=== PATIENT | male | born 1940 | race Caucasian/White ===

== ENCOUNTER 2024-12-16 10:00 | Outpatient (CLI) | payer BC, MEDICARE ==
[~2024-12-16 10:00] MED LIST: ALPR-624 PO; ASPI-611 PO; CARI350T PO; LOP25T PO; MULT-1179 PO; TRAM50TA2 PO; UBID100C16 PO; VITC500T PO
--- NOTE | 2024-12-16 12:05 | VASCULAR REPORT ---
Left lower extremity venous duplex Clinical History: Swelling Comparison: None Technique: Duplex Doppler evaluation of the deep venous system of the left lower extremity from the common femor al vein to the popliteal vein including color Doppler and spectral/pulsed waveform analysis was perfo rmed. Findings/ IMPRESSION: No acute thrombus noted within the left lower extremity. 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 There is possible arteriovenous fistula visualized within the left proximal femoral vein. Waveforms appear arterialized throughout the femoral vein with reflux noted in the mid to distal portion. This may be related to history of prior trauma. Clinical correlation advised.
== END 2024-12-16 23:59 | disposition home or self-care (01) ==
LOC: VAS 10:00
PROVIDERS: ATTEND Family Medicine
DX: I82.512 Chronic embolism and thrombosis of left femoral vein (principal); R60.0 Localized edema
CPT/HCPCS: 93971

== ENCOUNTER 2025-03-26 06:10 | Day surgery (SDC) | payer MEDICARE, MEDICAID ==
[2025-03-26] VITALS (15 sets, daily range): BP systolic 84–107; BP diastolic 46–61; PULSE 78–102; RESP 14–16; TEMP 98.5; O2SAT 94–99
[~2025-03-26] VITALS: Ht 182.9 cm; Wt 101.0 kg
[~2025-03-26 06:10] MED LIST changes: -ALPR-624 PO; +APIX2.5T PO; -ASPI-611 PO; -CARI350T PO; +LISI10TA27 PO; -LOP25T PO; +METO25TA6 PO; -MULT-1179 PO; +ROSU10TA98 PO; +TAMS-55 PO; -UBID100C16 PO; -VITC500T PO
[2025-03-26] MEDS ORDERED: MIDO5TAB4 PO (06:39)
[2025-03-26] MEDS ORDERED: AMIO200T76 PO (06:41)
[2025-03-26] MEDS ORDERED: DIGO125T PO (06:42)
[2025-03-26 08:38] LABS: MEAN PLATELET VOLUME 7.3 FL (7.4-10.4); RED CELL DISTRIBUTION WIDTH 15.4 % (11.5-14.5)
[2025-03-26 08:47] LABS: INR 1.2 INR
[2025-03-26 08:53] LABS: CREATININE 1.06 MG/DL (0.60-1.10); TOTAL CARBON DIOXIDE 29.8 MMOL/L (24-32); eCRCL 58 ML/MIN; eGFR 67 ML/MIN
[2025-03-26] MEDS ORDERED: fentaNYL/PF 50MCG/1 ML 2ML syringe ONE (09:09)
--- NOTE | 2025-03-26 09:16 | PROGRESS NOTE ---
H&P - Interval Note Providers to CC ~ Patient examined and condition: Yes Interval changes as follows: No change in recent H and P on file. Risks benefits alt of Bilateral nephros sampson tube placement discussed with patient and informed consent disclosed. ASA 2 MAL 2. DESTINY PAUL MD Mar 26, 2025 09:16
--- NOTE | 2025-03-26 10:28 | PROGRESS NOTE ---
Progress Note - Angio Providers to CC ~ Angio Progress Note: Single puncture US and fluoro guided access of right and left renal collecting system. Avoided direct entry into existing cysts both sides. Plan is for 4 hrs of close observation of urine output each gravity bag and IF clearing, patient will be ok for discharge at 6 hrs post procedure. Plan for 3 month B neph tube exchanges as outpatient at [facility]. DESTINY PAUL MD Mar 26, 2025 10:28
--- NOTE | 2025-03-26 16:03 | RADIOLOGY REPORT ---
Bilateral nephrostogram and nephrostomy tube placement History:84-year-old with severe bilateral hydronephrosis. PROCEDURES: 1. Bilateral nephrostogram 2. Ultrasound-guided placement of new 8.5 Togolese nephrostomy tubes bilaterally 3. Moderate sedation administered by interventional radiology staff. Complications: None Contrast: None intravascular; 5 mL injected into each nephrostomy tube (which was promptly aspirated) Medications: 50 mcg fentanyl, 16 cc 1% lidocaine solution divided amongst the right and left side. Fluoroscopy time: 3.6 minutes, fluoroscopy dose 85 mGy. Fentanyl sedation start time was 0929 hours. No Versed was given. Technique: The nature, alternatives, benefits, and risks of the procedure were discussed the patient. Informed consent was disclosed to him. The patient was positioned prone and the right left flank flank were prepped and draped in standard sterile fashion using maximum sterile barrier technique. A timeout was performed to verify the appropriate patient, position, and type of procedure. A 21-gauge needle was advanced under ultrasound guidance into the posterior calyx of the left kidney. An 018 nitinol guidewire was advanced through the needle and the needle was exchanged for a coaxial dilator assembly (such as AccuStick). An 035 J-wire was placed and the tract was dilated to 8 Togolese. A new 8.5 Togolese Conroy-Nichols drainage catheter was positioned in the renal pelvis. Completion nephrostogram was performed. A 21-gauge needle was advanced under ultrasound guidance into the posterior calyx of the right kidney. An 018 nitinol guidewire was advanced through the needle and the needle was exchanged for a coaxial dilator assembly (such as AccuStick). An 035 J-wire was placed and the tract was dilated to 8 Togolese. A new 8.5 Togolese multipurpose drainage catheter was positioned in the renal pelvis. Completion nephrostogram was performed. The patient tolerated the procedures well without competition. Findings: Severe Hydronephrosis noted on ultrasound and post procedural nephrostogram bilaterally. Completion nephrostogram shows excellent filling and drainage of the renal collecting system. Impression: Successful image guided placement of bilateral 8.5 Togolese nephrostomy tubes placed to gravity drainage bag. A routine 3 month exchange can be planned via interventional radiology.
== END 2025-03-26 17:10 | disposition home or self-care (01) ==
LOC: SSTAY O 06:10
PROVIDERS: ATTEND Radiology Diagnostic Radiology
DX: N13.30 Unspecified hydronephrosis (principal); I11.0 Hypertensive heart disease with heart failure; I50.23 Acute on chronic systolic (congestive) heart failure; E78.5 Hyperlipidemia, unspecified; I48.91 Unspecified atrial fibrillation; I35.0 Nonrheumatic aortic (valve) stenosis; I73.9 Peripheral vascular disease, unspecified; Z87.440 Personal history of urinary (tract) infections
CPT/HCPCS: 36415; 50432; 80053; 85025; 85610; 99152; 99153; A4421; A4620; A6258; C1729; C1769; J7030; Z7610

== ENCOUNTER 2025-03-28 04:50 | Emergency (ER) | payer MEDICARE, MEDICAID ==
[~2025-03-28] VITALS: Ht 188 cm; Wt 100.0 kg
[~2025-03-28 04:50] MED LIST changes: +AMIO200T76 PO; +DIGO125T PO; +MIDO5TAB4 PO
--- NOTE | 2025-03-28 04:58 | VISIT NOTE ---
ED Rapid Medical Assessment History This is a 84-year-old gentleman who presents for evaluation of hematuria in his nephrostomy tubes. He and his family reported that they have received nephrostomy tubes two days ago [facility]. He was not his usual state of health until they noticed a bloody output in both bags. He has a Eliquis prescribed to him but states that he stopped taking it at the advice of his pharmacy helper. Denies any fever, chills, chest pain, difficulty breathing, nausea, vomiting, diarrhea, abdominal pain, flank pain. He has never experienced this hematuria in the past. He denies any palliating or aggravating factors. Denies any concern for tobacco, alcohol or illicit substances use. He can not tell me why nephrostomy tubes were placed. Exam: GENERAL: Awake, alert, oriented, GCS 15, no apparent distress, non-toxic appearing, answers questions, follows commands appropriately. Examined immediately upon arrival in the EMS gurney and placed in bed 11. HEENT: Atraumatic, normocephalic, pupils equal, extraocular muscles intact, sclerae anicteric, mucus membranes moist, oropharynx is clear, no stridor. NECK: supple, full active range of motion, trachea midline, no thyromegaly, no lymphadenopathy, no JVD. CARDIOVASCULAR: regular rate/rhythm, no murmurs/gallops/rubs, Pulses are 2+ in all extremities and symmetric. Capillary refill less than 2 seconds. PULMONARY: Nonlabored, good air movement ,no respiratory distress, speaking in full sentences, clear to auscultation bilaterally, no wheezing, no ronchi, no rales, no accessory muscle use. GASTROINTESTINAL: Soft, non-tender, non-distended, normal active bowel sounds, no organomegaly, no pulsatile masses, no CVA tenderness. NEUROLOGIC: Lucid with normal mental status. Normal facial symmetry. Moves all extremities symmetrically and with purpose. No truncal ataxia. Speech is fluid without evidence of dysarthria or aphasia, no focal deficits appreciated. MUSCULOSKELETAL: There is full range of motion of all extremities. There is no joint pain or joint swelling or joint erythema. There is no muscle pain or tenderness or swelling. EXTREMITIES: warm, well-perfused, no cyanosis, no clubbing, no edema, no acute deformities. Skin: warm, dry, no rashes or lesions, no jaundice, no petechiae orpurpura. No ecchymosis. PSYCHIATRIC: Normal affect, normal insight, normal concentration. Focused exam: [Bilateral nephrostomy to have transparent burgundy colored urine without clots] Assessment and Plan Differential diagnosis includes but not limited to hematuria secondary to anticoagulation, pyelonephritis, less likely renal malignancy. Unlikely to be anemia or hemorrhagic shock. Given recent nature of the procedure, bilateral nephrostomy hematuria emergent laboratory studies were obtained as well as advanced imaging of the abdomen and pelvis. DESEAN NUNEZ DO Mar 28, 2025 04:58
[2025-03-28 06:08] LABS: MEAN PLATELET VOLUME 8.1 FL (7.4-10.4); RED CELL DISTRIBUTION WIDTH 15.6 % (11.5-14.5)
[2025-03-28 06:10] LABS: LEUKOCYTE ESTERASE ,URINE NEGATIVE (Neg); OCCULT BLOOD,URINE LARGE (Neg)
[2025-03-28 06:10] LABS: LEUKOCYTE ESTERASE ,URINE SMALL (Neg); OCCULT BLOOD,URINE LARGE (Neg)
[2025-03-28 06:17] LABS: UA COLLECTION TYPE INDWELLING CATH
[2025-03-28 06:18] LABS: NITRITES, URINE NEGATIVE (Neg)
[2025-03-28 06:19] LABS: MUCUS STRANDS NONE SEEN /LPF (Neg); SQUAMOUS EPITHELIAL CELL,UR NONE SEEN /LPF (FEW)
[2025-03-28 06:20] LABS: UA COLLECTION TYPE INDWELLING CATH
[2025-03-28 06:21] LABS: NITRITES, URINE NEGATIVE (Neg)
[2025-03-28 06:22] LABS: MUCUS STRANDS NONE SEEN /LPF (Neg); SQUAMOUS EPITHELIAL CELL,UR FEW /LPF (FEW)
[2025-03-28 06:23] LABS: APTT 23 SECONDS (22-32); INR 1.1 INR
[2025-03-28 06:29] LABS: CREATININE 0.97 MG/DL (0.60-1.10); PHOSPHORUS 2.8 MG/DL (2.3-4.5); eCRCL 67 ML/MIN; eGFR 74 ML/MIN
--- NOTE | 2025-03-28 06:29 | Physician Documentation ---
History of Present Illness ~ Chief Complaint: Blood in Urine Stated Complaint: BLOOD IN URINE Time Seen by MD: 06:15 OK to notify your PCP?: Yes Source: patient, RN/MD, EMS, RN notes reviewed, EMS notes reviewed, old records Mode of Arrival: EMS Exam Limitations: no limitations HPI Patient was seen by the nighttime physician laboratory work was started in his beginning of the workup. The patient arrived from [facility]. Patient has a history of low blood pressure normal blood pressure for this patient is 90s systolic. This is a 84-year-old gentleman who presents for evaluation of hematuria in his nephrostomy tubes. He and his family reported that they have received nephrostomy tubes two days ago [facility]. He was not his usual state of health until they noticed a bloody output in both bags. He has a Eliquis prescribed to him but states that he stopped taking it at the advice of his smokehouse operator. Denies any fever, chills, chest pain, difficulty breathing, nausea, vomiting, diarrhea, abdominal pain, flank pain. He has never experienced this hematuria in the past. He denies any palliating or aggravating factors. Denies any concern for tobacco, alcohol or illicit substances use. He can not tell me why nephrostomy tubes were placed. Medication Reconciliation Allergies: Coded Allergies: No Known Allergies (Unverified , 03/28/25) Scheduled Amiodarone Hcl (Cordarone), 0.5 TAB PO BID, (Reported) Apixaban (Eliquis), 1 TAB PO BID, (Reported) Digoxin* (Lanoxin*), 1 TAB PO DAILY, (Reported) Lisinopril (Lisinopril), 1 TAB PO DAILY, (Reported) Metoprolol Tartrate (Metoprolol Tartrate), 1 TAB PO DAILY, (Reported) Rosuvastatin Calcium (Rosuvastatin Calcium), 1 TAB PO HS, (Reported) Tamsulosin Hcl* (Flomax*), 1 CAP PO DAILY, (Reported) Scheduled PRN Midodrine HCl (Midodrine HCl), 1 TAB PO Q12H PRN for low blood pressure, (Reported) Tramadol Hcl (Tramadol Hcl), 1 TAB PO TID PRN for pain, (Reported) Past Medical History Past Medical History: Coronary Artery Disease, Acute Kidney Injury Other Past Surgical History: Nephrostomy tubes Patient History: Heart valve abnormality FATHER, , Age: 82, Cause: Heart abnormality, Not a twin Smoking Status: Former smoker Alcohol Use: None Drug Use: none Review of Systems All Other Systems at this time: Reviewed and Negative Physical Exam Vital Signs: RN Vital Signs have been reviewed: Yes, Temperature: 98.5, Source: Oral, Heart Rate: 80, Respiratory Rate: 18, BP: 97/59, Pulse Oximetry: 99, Weight: 100.000 Physical Exam Exam: GENERAL: Awake, alert, oriented, GCS 15, no apparent distress, non-toxic appearing, answers questions, follows commands appropriately. Examined immediately upon arrival in the EMS gurney and placed in bed 11. HEENT: Atraumatic, normocephalic, pupils equal, extraocular muscles intact, sclerae anicteric, mucus membranes moist, oropharynx is clear, no stridor. NECK: supple, full active range of motion, trachea midline, no thyromegaly, no lymphadenopathy, no JVD. CARDIOVASCULAR: regular rate/rhythm, no murmurs/gallops/rubs, Pulses are 2+ in all extremities and symmetric. Capillary refill less than 2 seconds. PULMONARY: Nonlabored, good air movement ,no respiratory distress, speaking in full sentences, clear to auscultation bilaterally, no wheezing, no ronchi, no rales, no accessory muscle use. GASTROINTESTINAL: Soft, non-tender, non-distended, normal active bowel sounds, no organomegaly, no pulsatile masses, no CVA tenderness. NEUROLOGIC: Lucid with normal mental status. Normal facial symmetry. Moves all extremities symmetrically and with purpose. No truncal ataxia. Speech is fluid without evidence of dysarthria or aphasia, no focal deficits appreciated. MUSCULOSKELETAL: There is full range of motion of all extremities. There is no joint pain or joint swelling or joint erythema. There is no muscle pain or tenderness or swelling. EXTREMITIES: warm, well-perfused, no cyanosis, no clubbing, no edema, no acute deformities. Skin: warm, dry, no rashes or lesions, no jaundice, no petechiae orpurpura. No ecchymosis. PSYCHIATRIC: Normal affect, normal insight, normal concentration. Focused exam: [Bilateral nephrostomy to have transparent burgundy colored urine without clots] Progress Results/Orders Reviewed/noted all lab results: Yes Results/Orders Completed Orders - MOON,BK S MD Normal Saline 1000ml (0.9% Sodium Chlori (03/28/25 06:25) Normal Saline 1000ml (0.9% Sodium Chlori (03/28/25 06:25) Iohexol 300mg/Ml 100ml Inj. (Omnipaque-3 (03/28/25 09:43) Normal Saline 1000ml (0.9% Sodium Chlori (03/28/25 11:30) Medications Received in ER Medications (Trade) Dose Ordered Sig/Pasquale Route PRN Reason Start Time Stop Time Status Last Admin Dose Admin (0.9% sodium chloride (NS) 1000ml IV soln) 500 ml ONCE ONCE IVB 03/28/25 11:30 03/28/25 11:31 DC 03/28/25 11:39 500 ML Vital Signs 03/28/25 03/28/25 03/28/25 03/28/25 04:56 05:25 05:25 06:30 Temp 98.5 Pulse 75 80 81 Resp 16 16 18 18 B/P (MAP) 93/59 97/59 (72) 81/48 (59) Pulse Ox 98 99 94 O2 Flow Rate 0 03/28/25 03/28/25 03/28/25 03/28/25 07:30 08:30 09:30 10:30 Pulse 85 84 86 81 Resp 18 18 18 16 B/P (MAP) 98/60 (73) 94/59 (71) 101/65 (77) 92/56 (68) Pulse Ox 95 95 96 98 O2 Flow Rate 0 0 0 0 03/28/25 03/28/25 03/28/25 03/28/25 11:30 13:30 13:30 13:57 Pulse 78 79 82 79 Resp 16 16 18 16 B/P (MAP) 96/57 (70) 98/53 (68) 107/59 (75) 101/56 (71) Pulse Ox 97 96 98 97 O2 Flow Rate 0 0 0 0 03/28/25 14:23 Temp 98.5 Pulse 82 Resp 18 B/P (MAP) 101/56 Pulse Ox 99 Laboratory Tests Test 03/28/25 05:25 03/28/25 05:35 Urine Specimen Description Indwelling cath Indwelling cath Urine Color Red Red Urine Clarity Cloudy Cloudy Urine pH 8.0 8.0 Urine Specific [place] 1.015 1.010 Urine Protein 100 H 100 H Urine Glucose (UA) Negative Negative Urine Ketones Trace H Trace H Urine Occult Blood Large H Large H Urine Nitrite Negative Negative Urine Bilirubin Negative Negative Urine Urobilinogen 1.0 1.0 Urine Leukocyte Esterase Small H Negative Urine RBC Tntc Tntc Urine WBC 5-10 H 5-10 H Urine Squamous Epithelial Cells None seen Few Urine Bacteria None seen None seen Urine Mucus None seen None seen Urine Culture Indicated Indicated Indicated Volume Urine Centrifuged 10 ml 10 ml Urine Comment White Blood Count 6.2 Red Blood Count 2.96 L Hemoglobin 8.3 L Hematocrit 24.9 L Mean Corpuscular Volume 84.0 Mean Corpuscular Hemoglobin 28.1 Mean Corpuscular Hemoglobin Concent 33.4 Red Cell Distribution Width 15.6 H Platelet Count 195 Mean Platelet Volume 8.1 Neutrophils (%) (Auto) 57.0 Lymphocytes (%) (Auto) 24.6 Monocytes (%) (Auto) 13.7 H Eosinophils (%) (Auto) 4.0 Basophils (%) (Auto) 0.7 Neutrophils # (Auto) 3.5 Lymphocytes # (Auto) 1.5 Monocytes # (Auto) 0.8 Eosinophils # (Auto) 0.2 Basophils # (Auto) 0.0 CBC Comment Erythrocyte Sedimentation Rate 78 H Prothrombin Time 11.6 INR International Normalized Ratio 1.1 Activated Partial Thromboplast Time 23 Coagulation Comments Sodium Level 135 Potassium Level 4.0 Chloride Level 101 Carbon Dioxide Level 27.0 Anion Gap 7 L Blood Urea Nitrogen 21 H Creatinine 0.97 Estimated GFR/1.73 m2 74 BUN/Creatinine Ratio 21.6 H Glucose Level 97 Calcium Level 7.4 L Phosphorus Level 2.8 Magnesium Level 1.3 L Total Bilirubin 0.4 Aspartate Amino Transf (AST/SGOT) 42 H Alanine Aminotransferase (ALT/SGPT) 32 Alkaline Phosphatase 133 H C-Reactive Protein 4.17 H Total Protein 6.6 Albumin 1.9 L Globulin 4.7 H Albumin/Globulin Ratio 0.4 L Chemistry Comments Microbiology Date/Time Source Procedure Growth Status 03/28/25 06:21 Urine Nephrostomy Left Urine Culture - Preliminary Culture received. Resulted Re-Evaluation Re-Evaluation : Re-Evaluation: Unchanged Progress Patient was signed out to me at 6:00 a.m.. Patient was seen and examined. Patient is sleeping comfortably. Patient's systolic blood pressure is 88. He was started on some fluids. He has chronic anemia based on his prior laboratory work. His vitals are always low for this patient. Laboratory work is pending. Patient's laboratory work shows some chronic anemia with a hemoglobin of 8 hematocrit of 24. Sed rates elevated 78. Chemistry that is some mild abnormalities. Patient's magnesium is quite low at 1.3 otherwise electrolytes are within normal limits. Patient did not receive any magnesium he was later contacted at their facility that the levels were low and probably should be treated. Patient is laboratory work otherwise is reassuring. Patient's urinalysis did not have any significant leukocyte esterase it was listed as negative but TNTC RBCs. No antibiotics were given patient was hydrated for patient is potential dehydration and to prevent any urinary clots. BUN was 21 creatinine 0.97. Later CAT scan showed hydronephrosis has resolved patient is doing much better radiographically. His urine cleared up a bit his Eliquis was held for 24 hours and he was discharged back to his facility. Continuous it architect interpretation shows normal sinus rhythm heart rate 8 0s, no ectopy, normal, my interpretation. Pulse oximetry monitor interpretation shows normal oxygenation at 97% room air, normal, my interpretation. EKG/XRAY/CT/US/VASC/MRI CT : Interpreted By: radiologist CT: abdomen/pelvis With Contrast?: No Impression Indication: New onset hematuria, status post recent nephrostomy Technique: CT axial images of the abdomen and pelvis are obtained with intrave nous contrast. Coronal and sagittal reformats were obtained. Radiation Dose Information: CTDI volume is 29 mGy. Dose-length product is 1685 mGy*cm Comparison: CT CT ABDOMEN PELVIS on DOS: 03/12/25, FINDINGS: Cardiomegaly. Bibasilar atelectasis Adrenal glands, spleen, pancreas unremarkable. Liver capsule nodular morphology. No CT evidence for cholelithiasis. Interval placement of bilateral nephrostomy tubes no significant hydronephrosis. Nonobstructing left renal lower pole calculus measuring 5 mm. 1.4 cm left renal cyst. 3.1 cm right renal cyst. Stomach is partially distended. Small bowel loops are normal in caliber. Thickening of the rectosigmoid colon wall. Moderate volume stool throughout the colon. Abdominal aortic atherosclerotic disease there is periaortic/retroperitoneal soft tissue density extending to the presacral region. Bladder decompressed by Cid catheter. Bladder wall hyperemia, thickening. Soft tissue edema/ anasarca. Multiple sclerotic lesions are again noted including T12 lesion measuring 15 mm, L3 lesion measuring 12 mm, L1 lesion measuring 13 mm left pubic ramus lesion measuring 8 mm Probable DVT within the right superficial femoral, common femoral and external iliac veins IMPRESSION: Interval placement nephrostomy tubes bilaterally with near resolution of the hydronephrosis. Bladder wall thickening and surrounding stranding may represent cystitis. Periaortic/retroperitoneal soft tissue density extending to the presacral tissues with differential considerations including malignancy/ para neoplastic processes, retroperitoneal fibrosis. Probable DVT within the right common femoral / superficial /external iliac veins. Recommend duplex venous ultrasound to further evaluate. 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 5 mm nonobstructing left renal calculus. Rectal/sigmoid colon wall thickening which can be secondary to colitis, inflammatory disease. Cirrhotic morphology liver. Other findings as described. Electronically Signed by:LATOSHA MAURICIO MD Date & Time: 03/28/25 0810 Medical Decision Making Additional information obtaine: old records Findings Differential diagnosis includes but not limited to hematuria secondary to anticoagulation, pyelonephritis, less likely renal malignancy. Unlikely to be anemia or hemorrhagic shock. Urinary Diff Dx:Considerations: Include: Postoperative Comp., Prostatitis, Pyelonephritis, Renal failure, Renal infarction, Urolithiasis, Urinary Obstruction, Urethritis, Urinary retention, UTI, Other Genital Diff Dx:Considerations: Include: Urinary retention, UTI Departure Time of Disposition: 12:03 Disposition: 01 HOME / SELF CARE / HOMELESS Impression: Primary Impression: Postoperative haemorrhage Additional Impression: Dehydration Condition: Stable Discharge Instructions: Hematuria, Adult Referrals: NO PRIMARY CARE PROVIDER (PCP) Education Educated: Patient Educated regarding: diagnosis, treatment, prognosis, need for follow up, other Signature Scribe Signature: Scribed for Bk Moon MD by Milli Dutton 03/28/25 11:13 Attestation: The note accurately reflects work and decisions made by me.Bk Moon MD 03/28/25 06:29 BK MOON MD Mar 28, 2025 06:29
[2025-03-28 06:52] LABS: TOTAL CARBON DIOXIDE 27.0 MMOL/L (24-32)
[2025-03-28] MEDS: normal saline 1000ml 1,000 ML IV ONE (06:58)
[2025-03-28] MEDS: normal saline 1000ML IV soln IVB ONE ×2 (06:58→11:39)
--- NOTE | 2025-03-28 08:08 | RADIOLOGY REPORT ---
Indication: New onset hematuria, status post recent nephrostomy Technique: CT axial images of the abdomen and pelvis are obtained with intravenous contrast. Coronal and sagittal reformats were obtained. Radiation Dose Information: CTDI volume is 29 mGy. Dose-length product is 1685 mGy*cm Comparison: CT CT ABDOMEN PELVIS on DOS: 03/12/25, FINDINGS: Cardiomegaly. Bibasilar atelectasis Adrenal glands, spleen, pancreas unremarkable. Liver capsule nodular morphology. No CT evidence for cholelithiasis. Interval placement of bilateral nephrostomy tubes no significant hydronephrosis. Nonobstructing left renal lower pole calculus measuring 5 mm. 1.4 cm left renal cyst. 3.1 cm right renal cyst. Stomach is partially distended. Small bowel loops are normal in caliber. Thickening of the rectosigmoid colon wall. Moderate volume stool throughout the colon. Abdominal aortic atherosclerotic disease there is periaortic/retroperitoneal soft tissue density extending to the presacral region. Bladder decompressed by Cid catheter. Bladder wall hyperemia, thickening. Soft tissue edema/ anasarca. Multiple sclerotic lesions are again noted including T12 lesion measuring 15 mm, L3 lesion measuring 12 mm, L1 lesion measuring 13 mm left pubic ramus lesion measuring 8 mm Probable DVT within the right superficial femoral, common femoral and external iliac veins IMPRESSION: Interval placement nephrostomy tubes bilaterally with near resolution of the hydronephrosis. Bladder wall thickening and surrounding stranding may represent cystitis. Periaortic/retroperitoneal soft tissue density extending to the presacral tissues with differential considerations including malignancy/ para neoplastic processes, retroperitoneal fibrosis. Probable DVT within the right common femoral / superficial /external iliac veins. Recommend duplex venous ultrasound to further evaluate. 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 5 mm nonobstructing left renal calculus. Rectal/sigmoid colon wall thickening which can be secondary to colitis, inflammatory disease. Cirrhotic morphology liver. Other findings as described.
[2025-03-28] MEDS ORDERED: iohexol 300mg/ml 100ml inj. ONE (09:43)
[2025-03-28 14:23] VITALS: BP 101/56; PULSE 82; RESP 18; TEMP 98.5; O2SAT 99
[2025-04-03 15:19] LABS: HEPARIN ANTI-XA LMWH 0.64 IU/mL (.)
== END 2025-03-28 14:20 | disposition home or self-care (01) ==
LOC: ER 04:51
DX: N99.821 Postprocedural hemorrhage of a genitourinary system organ or structure following other procedure (principal); E86.0 Dehydration; N20.0 Calculus of kidney; I25.10 Atherosclerotic heart disease of native coronary artery without angina pectoris; Z79.899 Other long term (current) drug therapy
CPT/HCPCS: 36415; 74177; 80053; 81001; 83735; 84100; 85025; 85610; 85651; 85730; 86140; 87088; 96360; 96361; 99285; J7030; J7040; Q9967

== ENCOUNTER 2025-06-02 12:12 | Emergency (ER) | payer MEDICARE, MEDICAID ==
[~2025-06-02] VITALS: Ht 188 cm; Wt 96.0 kg
[~2025-06-02 12:12] MED LIST changes: +ASCO100T12 PO; +CALC667T8 PO; -DIGO125T PO; +FERR-119 PO; +LEVO125C5 PO; -LISI10TA27 PO; +MULT-1085 PO
--- NOTE | 2025-06-02 13:02 | Physician Documentation ---
History of Present Illness Chief Complaint: See Chief Complaint Stated Complaint: DISLODGED TUBE Time Seen by MD: 13:01 OK to notify your PCP?: Yes Source: patient, RN/MD, EMS, RN notes reviewed, old records Mode of Arrival: EMS Exam Limitations: no limitations HPI Patient is an 84-year-old male with a history of prostate cancer and obstructive uropathy, recently admitted for sepsis UTI and discharged to [facility] where he is receiving physical therapy and IV antibiotics. Patient underwent bilateral nephrostomy tube placement [address] Hidalgo, and has an upcoming appointment on June 23 for nephrostomy tube replacement. He was sent here today due to concerns of left nephrostomy tube dislodgement. Patient denies any subjective symptoms including fevers, chills, shortness of breath, chest pain, abdominal pain. Medication Reconciliation Allergies: Coded Allergies: No Known Allergies (Unverified , 06/02/25) Scheduled Amiodarone Hcl (Cordarone), 0.5 TAB PO BID, (Reported) Apixaban (Eliquis), 1 TAB PO BID, (Reported) Ascorbic Acid (Vitamin C), 1 TAB PO DAILY, (Reported) Calcium Acetate (Calcium Acetate), 1 TAB PO Q8H, (Reported) Ferrous Sulfate (Iron), 1 TAB PO DAILY, (Reported) Levothyroxine Sodium (Levothyroxine), 1 CAP PO DAILY, (Reported) Metoprolol Tartrate (Metoprolol Tartrate), 1 TAB PO DAILY, (Reported) Multivitamin (Multi Vitamin Daily), 1 TAB PO DAILY, (Reported) Rosuvastatin Calcium (Rosuvastatin Calcium), 1 TAB PO HS, (Reported) Tamsulosin Hcl* (Flomax*), 1 CAP PO DAILY, (Reported) Scheduled PRN Midodrine HCl (Midodrine HCl), 1 TAB PO Q12H PRN for low blood pressure, (Reported) Tramadol Hcl (Tramadol Hcl), 1 TAB PO TID PRN for pain, (Reported) Past Medical History Past Medical History: Atrial Fibrillation, Coronary Artery Disease, Acute Kidney Injury Other Past Surgical History: Nephrostomy tubes Patient History: Heart valve abnormality FATHER, , Age: 82, Cause: Heart abnormality, Not a twin Alcohol Use: None Drug Use: none Review of Systems All Other Systems at this time: Reviewed and Negative Physical Exam Vital Signs: RN Vital Signs have been reviewed: Yes, Temperature: 97.6, Source: Oral, Heart Rate: 62, Respiratory Rate: 18, BP: 102/54, Pulse Oximetry: 95, Weight: 96.000 Oxygen Flow Rate: 0 Physical Exam General: awake, alert oriented to place, time, and person HEENT: Mild pallor present, no icterus, dry mucous membranes Neck: No masses and tenderness Resp: Unlabored. Lungs clear to auscultation bilaterally. Chest: Normal expansion Cardiovascular: Regular Rate and rhythm, normal S1 and S2 without murmur, rub or gallop Abdomen: Bilateral nephrostomy tubes present, appear patent with urine visualized in bags. Soft and nontender, no organomegaly, no guarding and rigidity, bowel sounds present Neuro: No focal weakness in the upper and lower limb muscles, power of the muscles 5/5 bilateral upper and lower extremities, normal reflexes bilaterally. Cranial nerves intact Extremities: No cyanosis,clubbing or edema Skin: Warm and Dry. No lesions Psych: Normal affect Progress Results/Orders Reviewed/noted all lab results: Yes Results/Orders Vital Signs 06/02/25 12:13 Temp 97.6 Pulse 62 Resp 18 B/P (MAP) 102/54 Pulse Ox 95 O2 Flow Rate 0 Re-Evaluation Re-Evaluation : Re-Evaluation: Improved, Unchanged EKG/XRAY/CT/US/VASC/MRI CT : Interpreted By: radiologist CT: abdomen/pelvis With Contrast?: Yes Impression [address] [address] CAT SCAN Patient: FRED ARANGO Medical Record: [id number] [facility] : 1940, Age: 84 Sex: Male Location: ER Patient Status: [facility] ER Service Date/Time: 06/02/25/ 4 Ordering Physician: GERMAN AGARWAL Exam: CT ABDOMEN PELVIS EXAM: CT CT ABDOMEN PELVIS History: Dislodged nephrostomy tube Comparison Study: CT CT ABDOMEN PELVIS W/ IV CONTRAST on DOS: 05/17/25, CT CT ABDOMEN PELVIS on DOS: 05/16/25 Exam Date: 06/02/2025 01:22 PM Radiation Dose Information: CT Dose: CTDI volume is 29 mGy. Dose-length product is 1511 mGy*cm TECHNIQUE: Multislice data acquisition was obtained through the abdomen and pelvis. The data set was subsequently reconstructed into axial images. Images were reviewed on a work station using a combination of axial and multiplanar using a variety of window levels and settings. Images obtained before and after IV contrast administration. FINDINGS: Lower chest: Clear. Liver: Unremarkable Biliary system: Unremarkable Spleen: Unremarkable Pancreas: Unremarkable. Adrenals: Unremarkable. Kidneys and ureters: Diffuse nodular densities seen throughout the left perinephric region and retroperitoneum predominantly surrounding the left ureter likely relate to neoplastic process. Unchanged right nephrostomy tube with tip in the right renal pelvis. Left nephrostomy tube is slightly retracted with tip now in the left lower pole calyx. Unchanged nonobstructing left lower pole calculus. Bowel: No obstruction. Bladder: Persistent severe bladder wall thickening, with surrounding nodularities. By Cid catheter. Reproductive organs: No abnormal mass. Lymph nodes: Similar-appearing enlarged pelvic lymph nodes , Left-gr [id number]. Peritoneum: Unremarkable Vessels: Patent major intra-abdominal vasculature. Bones and soft tissue: Unchanged multiple sclerotic lesions in the lumbar spine. Body wall anasarca/ edema, [id number]-right. IMPRESSION: Limited noncontrast study. Left nephrostomy tube is slightly retracted with tip in the left lower pole calyx. No hydronephrosis. Unchanged right nephrostomy tube. No hydronephrosis. Findings suspicious for urinary tract malignancy with diffuse bladder wall thick ening and diffuse nodularity surrounding the bladder as well as left ureter and left kidney. Correlate with cancer history. Unchanged enlarged retroperitoneal and pelvic metastatic lymphadenopathy. Unchanged sclerotic lesions in the lumbar spine may represent osseous metastases. Electronically Signed by:YOAN CHOUDHURY MD Date & Time: 06/02/25 1408 Dictated by: YOAN CHOUDHURY MD Dictation date and time: 06/02/25 4644 Primary Care Provider: NO PRIMARY CARE PROVIDER cc: GERMAN AGARWAL ~ Medical Decision Making Additional information obtaine: old records, family Findings Patient is an 84-year-old male with prostate cancer, who was brought here from [facility] with concerns of left nephrostomy tube dislodgement. On initial assessment both nephrostomy tubes appear to be in place with good urine output. CT scan of abdomen and pelvis showed slight movement of the tip of the catheter, but no signs of obstruction or hydronephrosis. Patient was found slightly hypotensive and appears likely dehydrated, we will give a bolus of IV normal saline. However, patient is chronically hypotensive. Patient is ready to be transferred back to [facility]. Jeffrey Moon MD 06/07/25 07:05 Patient received fluid bolus. Laboratory work was obtained. Patient had a slight increase in the creatinine function. Otherwise he was draining from his urostomy tubes. Patient was discharged home. Differential Dx:Considerations: Inflammatory BD, Ischemic bowel, Urinary obstruction, Urinary tract infection, Urolithiasis, Other Additional Comments Possible nephrostomy tube dislodgement Departure Disposition: HOME / SELF CARE / HOMELESS Impression: Primary Impression: Nephrostomy tube displaced Condition: Stable Additional Instructions: Continue to follow up with IR and Urology for nephrostomy tube replacement in June Referrals: NO PRIMARY CARE PROVIDER (PCP) Education Educated: Patient, Family Additional Comment Additional Comment I reviewed the case with the resident. Agree with his management and plan and evaluated the patient. Signature Scribe Signature: No scribed Attestation: The note accurately reflects work and decisions made by me.Jeffrey Moon MD 06/02/25 13:02 JEFFREY MOON MD Jun 02, 2025 13:02 GERMAN AGARWAL Jun 02, 2025 13:33 HODA MOON Jun 02, 2025 14:43
[2025-06-02] MEDS: normal saline 1000ml 1,000 ML IV ONE (13:42)
[2025-06-02 14:03] LABS: MEAN PLATELET VOLUME 7.6 FL (7.4-10.4); RED CELL DISTRIBUTION WIDTH 19.3 % (11.5-14.5)
--- NOTE | 2025-06-02 14:10 | RADIOLOGY REPORT ---
EXAM: CT CT ABDOMEN PELVIS History: Dislodged nephrostomy tube Comparison Study: CT CT ABDOMEN PELVIS W/ IV CONTRAST on DOS: 05/17/25, CT CT ABDOMEN PELVIS on DOS: 05/16/25 Exam Date: 06/02/2025 01:22 PM Radiation Dose Information: CT Dose: CTDI volume is 29 mGy. Dose-length product is 1511 mGy*cm TECHNIQUE: Multislice data acquisition was obtained through the abdomen and pelvis. The data set was subsequently reconstructed into axial images. Images were reviewed on a work station using a combination of axial and multiplanar using a variety of window levels and settings. Images obtained before and after IV contrast administration. FINDINGS: Lower chest: Clear. Liver: Unremarkable Biliary system: Unremarkable Spleen: Unremarkable Pancreas: Unremarkable. Adrenals: Unremarkable. Kidneys and ureters: Diffuse nodular densities seen throughout the left perinephric region and retroperitoneum predominantly surrounding the left ureter likely relate to neoplastic process. Unchanged right nephrostomy tube with tip in the right renal pelvis. Left nephrostomy tube is slightly retracted with tip now in the left lower pole calyx. Unchanged nonobstructing left lower pole calculus. Bowel: No obstruction. Bladder: Persistent severe bladder wall thickening, with surrounding nodularities. By Cid catheter. Reproductive organs: No abnormal mass. Lymph nodes: Similar-appearing enlarged pelvic lymph nodes , [id number]-[id number]-izst-right. Peritoneum: Unremarkable Vessels: Patent major intra-abdominal vasculature. Bones and soft tissue: Unchanged multiple sclerotic lesions in the lumbar spine. Body wall anasarca/ edema, [id number]-right. IMPRESSION: Limited noncontrast study. Left nephrostomy tube is slightly retracted with tip in the left lower pole calyx. No hydronephrosis. Unchanged right nephrostomy tube. No hydronephrosis. Findings suspicious for urinary tract malignancy with diffuse bladder wall thickening and diffuse nodularity surrounding the bladder as well as left ureter and left kidney. Correlate with cancer history. Unchanged enlarged retroperitoneal and pelvic metastatic lymphadenopathy. Unchanged sclerotic lesions in the lumbar spine may represent osseous metastases.
[2025-06-02 14:15] LABS: CREATININE 1.20 MG/DL (0.60-1.10); TOTAL CARBON DIOXIDE 29.8 MMOL/L (24-32); eCRCL 54 ML/MIN; eGFR 58 ML/MIN
[2025-06-02 16:33] VITALS: BP 136/98; PULSE 88; RESP 16; TEMP 97.6; O2SAT 98
[2025-06-22] MEDS ORDERED: SPIR25TA5 PO (11:21)
[2025-06-22] MEDS ORDERED: EMPA10TA PO (11:21)
[2025-06-22] MEDS ORDERED: DIGO250T4 PO (11:21)
[2025-06-22] MEDS ORDERED: MIRT-142 PO (11:21)
[2025-06-22] MEDS ORDERED: ATOR40TA72 PO (11:21)
== END 2025-06-02 16:39 ==
LOC: ER 12:13
DX: T83.022A Displacement of nephrostomy catheter, initial encounter (principal); I25.10 Atherosclerotic heart disease of native coronary artery without angina pectoris; I48.91 Unspecified atrial fibrillation; Z85.46 Personal history of malignant neoplasm of prostate; Z87.440 Personal history of urinary (tract) infections; Z79.899 Other long term (current) drug therapy; Y73.2 Prosthetic and other implants, materials and accessory gastroenterology and urology devices associated with adverse incidents
CPT/HCPCS: 36415; 74176; 80048; 85025; 99284; J7030; 99285